=== PATIENT | female | born 1980 | race Caucasian/White ===

== ENCOUNTER → 2019-01-10 10:25 | Outpatient (CLI) | payer OTHER | END | disposition home or self-care (01) | LOC: D.LDO 10:25 | PROVIDERS: ATTEND Obstetrics & Gynecology | DX: O24.419 Gestational diabetes mellitus in pregnancy, unspecified control (principal) ==

== ENCOUNTER → 2019-01-14 17:03 | Outpatient (CLI) | payer OTHER | END | disposition home or self-care (01) | LOC: D.LDO 17:03 | PROVIDERS: ATTEND Obstetrics & Gynecology | DX: O24.913 Unspecified diabetes mellitus in pregnancy, third trimester (principal); Z3A.31 31 weeks gestation of pregnancy ==

== ENCOUNTER → 2019-01-17 12:37 | Outpatient (CLI) | payer OTHER ==
[~2019-01-17 12:37] MED LIST: GLYBURIDE5 M1 PO; HYDROCODON-ACE1 EA10 PO; IBUPROFEN600 MG PO; PRENAVITE1 TAB PO
== END | disposition home or self-care (01) ==
LOC: D.LDO 12:37
DX: O24.419 Gestational diabetes mellitus in pregnancy, unspecified control (principal)

== ENCOUNTER → 2019-01-20 11:55 | Outpatient (CLI) | payer OTHER | END | disposition home or self-care (01) | LOC: D.LDO 11:55 | PROVIDERS: ATTEND Obstetrics & Gynecology | DX: O24.913 Unspecified diabetes mellitus in pregnancy, third trimester (principal); Z3A.32 32 weeks gestation of pregnancy ==

== ENCOUNTER → 2019-01-23 10:59 | Outpatient (CLI) | payer OTHER | END | disposition home or self-care (01) | LOC: D.LDO 10:59 | PROVIDERS: ATTEND Obstetrics & Gynecology | DX: O24.419 Gestational diabetes mellitus in pregnancy, unspecified control (principal); Z3A.33 33 weeks gestation of pregnancy ==

== ENCOUNTER → 2019-01-27 17:05 | Outpatient (CLI) | payer OTHER | END | disposition home or self-care (01) | LOC: D.LDO 17:05 | PROVIDERS: ATTEND Obstetrics & Gynecology | DX: O24.419 Gestational diabetes mellitus in pregnancy, unspecified control (principal); Z3A.33 33 weeks gestation of pregnancy ==

== ENCOUNTER → 2019-01-30 12:47 | Outpatient (CLI) | payer OTHER ==
[2019-01-30 14:53] LABS: APPEARANCE HAZY (CLEAR); BILIRUBIN NEGATIVE (NEGATIVE); COLOR DK YELLOW (YELLOW); GLUCOSE NEGATIVE (NEGATIVE); KETONE NEGATIVE (NEGATIVE); NITRITE NEGATIVE (NEGATIVE); PROTEIN 2+ mg/dL (NEGATIVE); SPECIFIC GRAVITY 1.015 (1.005-1.020)
[2019-01-30 14:54] LABS: BACTERIA FEW /hpf (NONE SEEN); EPITHELIAL CELLS 0-5 /hpf (0-5); MUCUS <1+ /lpf (NONE SEEN); RED CELLS - URINE OCC /hpf (0-5); WHITE CELLS - URINE 0-5 /hpf (0-5)
== END | disposition home or self-care (01) ==
LOC: D.LDO 12:47
PROVIDERS: ATTEND Obstetrics & Gynecology
DX: O24.419 Gestational diabetes mellitus in pregnancy, unspecified control (principal); Z3A.34 34 weeks gestation of pregnancy

== ENCOUNTER → 2019-02-03 17:20 | Outpatient (CLI) | payer OTHER | END | disposition home or self-care (01) | LOC: D.LDO 17:20 | PROVIDERS: ATTEND Neurological Surgery | DX: O24.419 Gestational diabetes mellitus in pregnancy, unspecified control (principal); Z3A.34 34 weeks gestation of pregnancy ==

== ENCOUNTER → 2019-02-06 10:15 | Outpatient (CLI) | payer OTHER ==
--- NOTE | 2019-02-06 11:17 | NUR ---
PT SITTING UP IN BED , DENIES ANY S/S. SIG OTHER AT BEDSIDE. SRUx2, CL IN REACH.
[2019-02-06 11:21] LABS: APPEARANCE TURBID (CLEAR); BILIRUBIN NEGATIVE (NEGATIVE); COLOR YELLOW (YELLOW); GLUCOSE NEGATIVE (NEGATIVE); KETONE NEGATIVE (NEGATIVE); NITRITE NEGATIVE (NEGATIVE); PROTEIN 1+ mg/dL (NEGATIVE); SPECIFIC GRAVITY 1.025 (1.005-1.020); WHITE CELLS - URINE 0-5 /hpf (0-5)
[2019-02-06 11:22] LABS: AMORPHOUS SEDIMENT >1+ /lpf (NONE SEEN); BACTERIA MODERATE /hpf (NONE SEEN); EPITHELIAL CELLS 0-5 /hpf (0-5); MUCUS <1+ /lpf (NONE SEEN)
--- NOTE | 2019-02-06 11:35 | NUR ---
PT UP TO BR TO VOID WITH ASSIST FROM SIG OTHER. PT BACK TO BED. THIS RN TO ROOM FOR PT CHECK AND TO REAPPLY BP CUFF AND PULSE OX. PT DENIES NEEDS. PT SKIN TONE IMPROVING, MORE COLOR TO CHEEKS. SRUx2, CL IN REACH. WILL CONT TO MONITOR.
[2019-02-08 12:48] LABS: PROTEIN - URINE 31.5 mg/dL (0.0-11.9)
== END | disposition home or self-care (01) ==
LOC: D.LDO 10:15
PROVIDERS: ATTEND Obstetrics & Gynecology
DX: O24.419 Gestational diabetes mellitus in pregnancy, unspecified control (principal); Z3A.35 35 weeks gestation of pregnancy

== ENCOUNTER → 2019-02-10 12:00 | Outpatient (CLI) | payer OTHER | END | disposition home or self-care (01) | LOC: D.LDO 12:00 | PROVIDERS: ATTEND Obstetrics & Gynecology | DX: O24.913 Unspecified diabetes mellitus in pregnancy, third trimester (principal); Z3A.35 35 weeks gestation of pregnancy ==

== ENCOUNTER → 2019-02-13 12:01 | Outpatient (CLI) | payer OTHER | END | disposition home or self-care (01) | LOC: D.LDO 12:01 | PROVIDERS: ATTEND Obstetrics & Gynecology | DX: O13.3 Gestational [pregnancy-induced] hypertension without significant proteinuria, third trimester (principal); Z3A.36 36 weeks gestation of pregnancy ==

== ENCOUNTER → 2019-02-17 09:20 | Outpatient (CLI) | payer OTHER ==
[2019-02-17 10:37] LABS: BASOPHILS 0.3 % (0-2); EOSINOPHILS 1.4 % (0-7); HEMATOCRIT 31.4 % (36.0-48.0); HEMOGLOBIN 10.8 g/dL (12-16); IMMATURE GRANULOCYTES 0.8 % (0-5); LYMPHOCYTES 19.6 % (15-50); MCH 33.2 pg (26.0-34.0); MCHC 34.4 g/dL (31.0-37.0); MCV 96.6 fL (80.0-100.0); MEAN PLATELET VOLUME 10.1 fL (7.4-10.4); MONOCYTES 9.8 % (2-11); NEUTROPHILS 68.1 % (40-80); PLATELET COUNT 172 10x3/uL (130-400); RBC 3.25 10x6/uL (4.00-5.40); RDW 13.3 % (11.5-14.5); WBC 7.2 10x3/uL (4.8-10.8)
[2019-02-17 10:39] LABS: APPEARANCE HAZY (CLEAR); BILIRUBIN NEGATIVE (NEGATIVE); COLOR YELLOW (YELLOW); GLUCOSE NEGATIVE (NEGATIVE); KETONE NEGATIVE (NEGATIVE); NITRITE NEGATIVE (NEGATIVE); PROTEIN 1+ mg/dL (NEGATIVE); UROBILINOGEN NORMAL (NORMAL)
[2019-02-17 10:40] LABS: BACTERIA MANY /hpf (NONE SEEN); MUCUS <1+ /lpf (NONE SEEN); RED CELLS - URINE 0-5 /hpf (0-5)
[2019-02-17 10:41] LABS: AMORPHOUS SEDIMENT >1+ /lpf (NONE SEEN)
[2019-02-17 10:48] LABS: ALBUMIN 2.4 g/dL (3.4-5.0); ALKALINE PHOSPHATASE 151 U/L (46-116); ALT (SGPT) 19 U/L (10-68); BILIRUBIN - TOTAL 0.32 mg/dL (0.2-1.3); CALC OSMOLALITY 273 mosm/kg (275-300); CALCIUM 9.1 mg/dL (8.5-10.1); CARBON DIOXIDE 23.6 mmol/L (21.0-32.0); CHLORIDE - SERUM 105 mmol/L (98-107); CREATININE - SERUM 0.6 mg/dL (0.6-1.3); GLUCOSE 101 mg/dL (74-106); POTASSIUM - SERUM 3.4 mmol/L (3.5-5.1); SODIUM 138 mmol/L (136-145); UREA NITROGEN 8 mg/dL (7-18); eGFR NON AFRICAN AMERICAN > 90 mL/min (90-120)
[2019-02-17 10:49] LABS: BILIRUBIN - DIRECT 0.07 mg/dL (0.00-0.30); BILIRUBIN - INDIRECT 0.25 mg/dL (0.00-1.00); URIC ACID 4.1 mg/dL (2.6-7.2)
[2019-02-18 12:20] LABS: PROTEIN - URINE 37.8 mg/dL (0.0-11.9)
== END | disposition home or self-care (01) ==
LOC: D.LDO 09:20
PROVIDERS: ATTEND Obstetrics & Gynecology
DX: O24.419 Gestational diabetes mellitus in pregnancy, unspecified control (principal); Z3A.36 36 weeks gestation of pregnancy

== ENCOUNTER → 2019-02-20 18:07 | Outpatient (CLI) | payer OTHER | END | disposition home or self-care (01) | LOC: D.LDO 18:07 | DX: O26.893 Other specified pregnancy related conditions, third trimester (principal); Z3A.37 37 weeks gestation of pregnancy ==

== ENCOUNTER 2019-02-21 05:11 | Inpatient (IN) | payer OTHER ==
[~2019-02-21] VITALS: Ht 172.7 cm; Wt 98.9 kg
[2019-02-21] MEDS ORDERED: GLYBURIDE5 M1 PO (05:36)
[2019-02-21] MEDS ORDERED: PRENAVITE1 TAB PO (05:36)
[2019-02-21 05:58] VITALS: BP 111/59; Ht 172.7 cm; Wt 98.9 kg
[2019-02-21 06:23] LABS: HEMATOCRIT 31.1 % (36.0-48.0); HEMOGLOBIN 10.6 g/dL (12-16); MCH 32.6 pg (26.0-34.0); MCHC 34.1 g/dL (31.0-37.0); MCV 95.7 fL (80.0-100.0); MEAN PLATELET VOLUME 10.1 fL (7.4-10.4); RBC 3.25 10x6/uL (4.00-5.40); RDW 13.2 % (11.5-14.5); WBC 8.5 10x3/uL (4.8-10.8)
[2019-02-21 07:50] LABS: APPEARANCE CLOUDY (CLEAR); BILIRUBIN NEGATIVE (NEGATIVE); COLOR YELLOW (YELLOW); GLUCOSE NEGATIVE (NEGATIVE); KETONE MODERATE mg/dL (NEGATIVE); NITRITE NEGATIVE (NEGATIVE); PROTEIN TRACE mg/dL (NEGATIVE); SPECIFIC GRAVITY 1.025 (1.005-1.020); UROBILINOGEN NORMAL (NORMAL)
[2019-02-21 07:51] LABS: AMORPHOUS SEDIMENT <1+ /lpf (NONE SEEN); BACTERIA MANY /hpf (NONE SEEN); MUCUS <1+ /lpf (NONE SEEN); RED CELLS - URINE RARE /hpf (0-5); URIC ACID CRYSTALS 0-5 /hpf (NONE SEEN); WHITE CELLS - URINE 0-5 /hpf (0-5)
--- NOTE | 2019-02-21 09:45 | NUR ---
I have reviewed this patient and I concur with the Shift Assessment completed by the Licensed Practical Nurse today this shift.
--- NOTE | 2019-02-21 09:52 | NUR ---
FUNDUS PALPATED. FIRM AND MIDLINE.
[2019-02-21 10:04] VITALS: BP 110/65
--- NOTE | 2019-02-21 10:10 | NUR ---
DILAUDID ENGRAVER SIGNATURE STARTED, RATES PAIN AT 5/10 AT THIS TIME. FUNDUS FIRM AT U/2, MIDLINE AND LIGHT LOCHIA NOTED. SHE IS ABLE TO DEMONSTRATE ENGRAVER SIGNATURE USE. SPOUSE AT BEDSIDE, CALL LIGHT IN REACH.
--- NOTE | 2019-02-21 10:20 | NUR ---
RECEIVED BY BED BACK TO ROOM FROM RECOVERY. PT IS AWAKE AND ALERT, RATES PAIN AT 3/10, FUNDUS FIRM AT U/2, NO CLOTS NOTED WITH MASSAGE, LIGHT LOCHIA. TOWELS AND PADS CHANGE, ICE PACK TO INCISION SITE. MACHADO CATH TO BEDSIDE DRAIN WITH 200ML DARK KOSTAS URINE NOTED TO SARATH MAX, SCD BILAT PER ORDERS AND PUMP IS ON. SALINE LOCK TO RIGHT FOREAM AND IV TO LEFT HAND INFUSING PER ORDERS. BIKINI INCISION HAS LARGE WHITE BANDAGE COVERING, BANDAGE IS CLEAN AND DRY. SIDE RAILS UP X 2 WITH CALL LIGHT IN REACH, FAMILY MEMBERS PERSENT.
--- NOTE | 2019-02-21 10:30 | NUR ---
FUNDUS FIRM A U/1, LIGHT TO MODERATE LOCHIA WITHOUT CLOTS NOTED WITH MASSAGE. RATES PAIN AT 2/10 BUT STATES SHE IS HAVING "WAVES OF NAUESA" TILTED TO RIGHT SIDE WITH COLD WET CLOTH PROVIDED. SMALL CUP OF ICE CHIP PER REQUEST. CALL LIGHT IN REACH.
--- NOTE | 2019-02-21 11:31 | NUR ---
FUNDUS FIRM AT U/1 WITH LIGHT BLEEDING NOTED, PADS CHANGED AND NEW ICE PACK APPLIED TO INCISION. STATES THAT NAUSEA IS MUCH BETTER AND RATES PAIN AT 2/10 AT THIS TIME, SIDE RAILS UP X 2 WITH CALL LIGHT IN REACH.
--- NOTE | 2019-02-21 12:15 | NUR ---
LARGE ICE WATER AND SMALL CUP OF ICE PER REQUEST. FUNDUS FIRM AT U/1 WITH LIGHT BLEEDING, NO CLOTS NOTED WITH MASSAGE. OUTPUT OF 200ML DARK URINE NOTED TO COLLECTION CANISTER. RATES PAIN AT 5/10, VISITING WITH FAMILY AT BEDSIDE.
--- NOTE | 2019-02-21 13:30 | NUR ---
CALLED TO ROOM, PT COMPLAINS OF INCREASE NAUSEA AFTER EACH USE OF DILAUDID STAFF TOXICOLOGIST, ALSO ASKING ABOUT EATING SOLID FOOD. STATES THAT IF SHE DOES NOT USE STAFF TOXICOLOGIST SHE HAS NO NAUSEA. BOWEL SOUNDS ACTIVE X 4. WILL CALL DR GARCIA WITH PT REQUEST.
--- NOTE | 2019-02-21 13:40 | NUR ---
REPORT TO DR GARCIA OF PT COMPLAINTS OF NAUSEA WITH DILAUDID AND WANTING TO EAT. ORDER RECEIVED TO HOLD DILAUDID GIVEN NORCO 10/325MG PO AND CALL MED WITH PAIN REASSESSMENT. REMAIN NPO AT THIS TIME.
--- NOTE | 2019-02-21 14:00 | NUR ---
PT AGREEABLE WITH PLAN OF CARE FOR PAIN TREATMENT. COMPLIANCE DIRECTOR DISCONNECTED AT THIS TIME. NORCO 10/325MG GIVEN WITH LARGE ICE WATER, RATES PAIN AT 5/10. SPOUSE AT BEDSIDE WITH CALL LIGHT IN REACH.
[2019-02-21 15:29] LABS: BASOPHILS 0.2 % (0-2); EOSINOPHILS 0.2 % (0-7); HEMATOCRIT 29.9 % (36.0-48.0); HEMOGLOBIN 9.9 g/dL (12-16); IMMATURE GRANULOCYTES 0.6 % (0-5); LYMPHOCYTES 15.3 % (15-50); MCH 32.2 pg (26.0-34.0); MCHC 33.1 g/dL (31.0-37.0); MCV 97.4 fL (80.0-100.0); NEUTROPHILS 76.7 % (40-80); PLATELET COUNT 160 10x3/uL (130-400); RBC 3.07 10x6/uL (4.00-5.40); RDW 13.1 % (11.5-14.5)
[2019-02-21 15:55] LABS: WBC 10.7 10x3/uL (4.8-10.8)
--- NOTE | 2019-02-21 17:00 | NUR ---
PT RATES PAIN AT 3/10, DENIES NAUSEA. SHE IS CURRENTLY SITTING UP IN BED WHILE VISIITING WITH FAMILY/FRIENDS. ELIZA PADS CHANGED AND PT ABLE TO MOVE SELF UP IN BED WITH LITTLE ASSISTANCE. SHE STATES "I DO NOT WANT ANY MORE DILAUDID" REPORT CALLED TO DR GARCIA ORDERS RECIEVED TO D/C DIRECTOR BUSINESS, MAY SALINE LOCK IV. NORCO 10/325MG AND MOTRIN 600MG PER STANDING ORDER SET, MAY HAVE REGULAR DIET TOLERATED.
--- NOTE | 2019-02-21 17:30 | NUR ---
ELIZA/MACHADO CARE PER THIS RN. PINK AND BLUE UNDERPADS CHANGED, FUNDUS FIRM AT U/1 WITH LIGHT BLEEDING AND NO CLOTS WITH MASSAGE. 100ML DARK CLEAR URINE NOTED TO COLLECTION CANISTER. RATES PAIN AT 3/10 AT THIS TIME. SIDE RAILS UP X 2 WITH CALL LIGHT IN REACH. SPOUSE AT BEDSIDE.
--- NOTE | 2019-02-21 19:36 | NUR ---
SHIFT ASSESSMENT COMPLETED PER FLOWSHEET. VSS. FUNDUS FIRM, MIDLINE AND U2 WITH SMALL RUBRA LOCHIA. PAIN 5/10, ABD CRAMPING, NORCO GIVEN. C/O NAUSEA, DISCUSSED ORDERED MEDICATIONS. REQUESTS ZOFRAN, WILL PROVIDED PER PT REQUEST, STATES THAT PHENERGAN WITH JUST MAKE HER DROWSY. BOWEL SOUNDS PRESENT AND ACTIVE X4. STATES THAT SHE IS PASSING "A LITTLE" FLATUS. REQUESTS MACHADO D/C AND STATES THAT SHE WANTS TO GET OOB IN THE "NEXT FEW HOURS." DRSG NOTED TO LOWER TRANSVERSE ABD INCISION, CLEAN, DRY AND INTACT. MACHADO D/C'D WITH 125 MLS TEA COLORED URINE EMPTIED. CHUX CHANGED AND PERICARE DONE. 1+ EDEMA NOTED TO BLE AND BUE. REFUSES SCD'S, EDUCATED ON PURPOSE AND IMPORTANCE OF SCD'S, VERBALIZES UNDERSTANDING, STATES "I JUST CAN'T MOVE MY LEGS WELL WITH THEM ON AND I GET HOT." INCENTIVE SPIROMETER USED WITH GOOD EFFORT. COUGHING AND DEEP BREATHING DONE WITH GOOD EFFORT. BED IN LOW POSITION WITH UPPER SIDE RAILS RAISED X2. CALL LIGHT AND PHONE WITHIN REACH. WILL CONTINUE TO MONITOR AND ASSIST PRN.
[2019-02-21 19:58] VITALS: BP 131/60
--- NOTE | 2019-02-21 19:58 | NUR ---
REQUESTS ZOFRAN FOR CONTINUED NAUSEA. L HAND PIV FLUSHES WELL WITH NO S/S OF INFILTRATION NOTED. ZOFRAN GIVEN IN L HAND PIV SIVP. RT FA PIV REMOVED PER PT REQUEST, STATES THAT IT IS SORE, REDNESS NOTED. WARM WASH CLOTH APPLIED. REINFORCED TEACHING ON CALLING FOR ASSISTANCE OOB, VERBALIZES UNDERSTANDING.
--- NOTE | 2019-02-21 20:53 | NUR ---
UP TO VOID. DENIES DIZZINESS AND LIGHTHEADEDNESS. STAND BY ASSIST TO BATHROOM, STEADY GAIT NOTED. VOIDED 350 MLS IN HAT. PERICARE DONE PER PT. PERIPADS AND PANTIES APPLIED. LINENS CHANGED. REQUESTS TO PUT ON OWN CLOTHS, PT CHANGED INTO HER PERSONAL CLOTHES. SITTING UP ON COUCH AT THIS TIME. ICE PACK PROVIDED, DENIES ADDITIONAL NEEDS. SPOUSE REMAINS AT BEDSIDE, SUPPORTIVE AND ATTENTIVE TO PT AND HER NEEDS. WILL CONTINUE TO MONITOR.
--- NOTE | 2019-02-21 21:36 | NUR ---
BACK TO BED WITH STAND BY ASSIST, STEADY GAIT NOTED. DENIES NEEDS.
--- NOTE | 2019-02-21 22:20 | NUR ---
REFUSES NICOTINE PATCH, STATES THAT SHE WAS A FORMER SMOKER BUT HASN'T SMOKED IN 4-5 YEARS. DENIES NEEDS AT THIS TIME. BED IN LOW POSITION WITH UPPER SIDE RAILS RAISED X2. CALL LIGHT AND PHONE WITHIN REACH. SPOUSE AT BEDSIDE, SUPPORTIVE AND ATTENTIVE TO PT AND HER NEEDS.
--- NOTE | 2019-02-21 22:32 | NUR ---
UP TO VOID WITH ASSIST OF SPOUSE. 300 MLS NOTED IN HAT WITH HALF DOLLAR SIZED CLOT. PT CONCERNED REGARDING AMT OF BLOOD IN HAT, SCANT RUBRA LOCHIA TO PERIPAD. VSS. FUNDUS FIRM, MIDLINE AND U2, SCANT RUBRA LOCHIA ON PERIPAD. DENIES DIZZINESS AND LIGHTHEADEDNESS. REQUEST SIMETHICONE, GIVEN PER REQUEST. ENCOURAGED TO AMBULATE IN [place], STATES THAT SHE WILL TRY WHEN SHE GETS UP THE NEXT TIME. ICE WATER PROVIDED. BED IN LOW POSITION WITH UPPER SIDE RAILS RAISED X2. CALL LIGHT AND PHONE WITHIN REACH. WILL CONT TO MONITOR. REFUSES SCD'S.
--- NOTE | 2019-02-21 23:44 | NUR ---
PAIN 3/10, ABD CRAMPING NORCO GIVEN. VOIDED 300 MLS IN HAT. REQUESTS TO AMBULATE TO [facility] PARENTS ROOM WITH SPOUSE STEADY GAIT NOTED, INSTRUCTED TO NOTIFY STAFF IF DIZZY OR FEELING FAINT, VERBALIZES UNDERSTANDING. WILL CHECK V/S WHEN SHE RETURNS TO ROOM.
[2019-02-22 00:24] VITALS: BP 120/59
--- NOTE | 2019-02-22 00:24 | NUR ---
BACK TO ROOM FROM AMBULATING. VSS. FUNDUS REMAINS FIRM MIDLINE AND U2 WITH SMALL AMT RUBRA LOCHIA, NO CLOTS NOTED. DENIES PAIN, STATES THAT SHE FEELS BETTER JUST BEING UP AMBULATING. ICE WATER, PEANUT BUTTER, AND MICHAEL CRACKERS PROVIDED. DENIES ADDITIONAL NEEDS. BED IN LOW POSITION WITH UPPER SIDE RAILS RAISED X2. CALL LIGHT AND PHONE WITHIN REACH. WILL CONTINUE TO MONITOR AND ASSIST PRN.
[2019-02-22 00:25] VITALS: BP 120/59
--- NOTE | 2019-02-22 01:52 | NUR ---
C/O PAIN 2/10 ABD SORENESS AND "FEELING GASSY." REQUESTS MOTRIN AND SIMETHICONE, GIVEN PER REQUEST. DENIES ADDITIONAL NEEDS, BED IN LOW POSITION WITH UPPER SIDE RAILS RAISED X2. CALL LIGHT AND PHONE WITHIN REACH. WILL CONTINUE TO MONITOR AND ASSIST PRN.
--- NOTE | 2019-02-22 02:40 | NUR ---
PAIN REASSESSMENT COMPLETED. RESTING QUIETLY IN SEMI FOWLERS POSITION WITH EYES CLOSED, RESPIRATIONS REGULAR AND UNLABORED, NO S/S OF DISTRESS NOTED. SPOUSE RESTING QUIETLY AT BEDSIDE. BED IN LOW POSITION WITH UPPER SIDE RAILS RAISED X2. CALL LIGHT AND PHONE WITHIN REACH.
[2019-02-22 04:02] VITALS: BP 131/56
--- NOTE | 2019-02-22 04:02 | NUR ---
VSS. PAIN 2-3/10 ABD CRAMPING. NORCO GIVEN PER PT REQUEST AND ORDER. ICE PACK AND ICE WATER PROVIDED. INCENTIVE SPIROMETER USED, GOOD EFFORT. UP TO VOID, QUARTER SIZED CLOT NOTED FOLLOWING VOID. FUNDUS REMAINS FIRM, MIDLINE AND U2 WITH SCANT RUBRA LOCHIA NOTED TO PERIPAD. DENIES ADDITIONAL NEEDS. BED IN LOW POSITION WITH UPPER SIDE RAILS RAISED X2. CALL LIGHT AND PHONE WITHIN REACH. WILL CONTINUE TO MONITOR AND ASSIST PRN.
--- NOTE | 2019-02-22 04:48 | NUR ---
RESTING QUIETLY WITH EYES CLOSED IN SEMI FOWLERS POSITION. RESPIRATIONS REGULAR AND UNLABORED, NO S/S OF DISTRESS NOTED. BED IN LOW POSITION WITH UPPER SIDE RAILS RAISED X2. CALL LIGHT AND PHONE WITHIN REACH. WILL CONTINUE TO MONITOR AND ASSIST PRN.
[2019-02-22 06:25] LABS: BASOPHILS 0.2 % (0-2); EOSINOPHILS 1.3 % (0-7); HEMATOCRIT 28.6 % (36.0-48.0); HEMOGLOBIN 9.5 g/dL (12-16); IMMATURE GRANULOCYTES 0.4 % (0-5); MCH 32.3 pg (26.0-34.0); MCHC 33.2 g/dL (31.0-37.0); MCV 97.3 fL (80.0-100.0); MEAN PLATELET VOLUME 10.1 fL (7.4-10.4); MONOCYTES 10.5 % (2-11); NEUTROPHILS 66.6 % (40-80); PLATELET COUNT 169 10x3/uL (130-400); RBC 2.94 10x6/uL (4.00-5.40); RDW 13.3 % (11.5-14.5); WBC 11.2 10x3/uL (4.8-10.8)
--- NOTE | 2019-02-22 07:08 | NUR ---
FASTING FSBS 92. SITTING ON EDGE OF BED CONVERSING WITH SPOUSE. REPORTS THAT SHE JUST VOIDED, DENIES NEEDS AT THIS TIME. BED IN LOW POSITION, CALL LIGHT PLACED WITHIN PT REACH. DENIES NEEDS.
[2019-02-22 07:18] LABS: RAPID PLASMA REAGIN Non Reactive (Non Reactive)
[2019-02-22 07:34] VITALS: BP 114/62
--- NOTE | 2019-02-22 07:35 | NUR ---
THIS RN TO ROOM FOR SHIFT ASSESSMENT. SHIFT ASSESSMENT COMPLETED, VSS, SEE FLOWSHEET FOR DOC. PT AAOx3, C/O PAIN AT INCISION AND CRAMPING, RATED 3/10 AT REST. FF, ML, U/U. SMALL RUBRA LOCHIA WITHOUT CLOTS. PT STATES SHE NEEDS TO GET UP AND VOID SOON. PT INSTRUCTED ON EMPTYING BLADDER FREQUENTLY AND S/S TO REPORT REGARDING LOCHIA AND CLOTS. UNDERSTANDING VERBALIZE. ABD DRESSING OVER LT C/S INCISION SHOWS SMALL AMOUNT SEROSANGINOUS DRAINAGE TO RIGHT/MIDLINE OF DRESSING. WILL CONT TO MONITOR DRAINAGE. PT REQUESTS IV OUT. AM LABS REVIEWED AND NOTED TO BE STABLE. LEFT HAND PIV REMOVED NO LONGER INDICATED. PRESSURE HELD AND BANDAID APPLIED. PT UP TO BR TO VOID. PT AMBULATES TO BR WITHOUT ASSIST AND VOIDS MODERATE AMOUNT CLEAR YELLOW URINE. SMALL LOCHIA NOTED, NO CLOTS. PERICARE PER PT. PT AMBULATES BACK TO BED, STATES PAIN IS NOW 5/10 WITH MOVEMENT AND REQUESTS PAIN MEDICATIONS, STATES SHE WANTS TO TAKE BOTH NORCO AND MOTRIN. PT ALSO STATES SHE NEEDS GAS-X AGAIN FOR GAS PAINS. PT DENIES PASSING GAS SINCE SURGERY. PT INSTRUCTED TO AMBULATE WHEN PAIN IS UNDER CONTROL, UNDERSTANDING VERBALIZED. PT SITTING UP IN BED EATING BREAKFAST AT THIS TIME. WILL ADMIN PAIN MEDS ORDERED.
--- NOTE | 2019-02-22 07:49 | NUR ---
PT ADMIN PRN PAIN MEDS AND SIMETHICONE ORDERED, SEE EMAR FOR DOC. PT PROVIDED WITH FRESH ICE WATER. PT STATES SHE WANTS TO SHOWER LATER. PT INSTRUCTED TO CALL THIS RN TO ASSIST WITH ABD DRESSING REMOVAL AND FOR BED LINEN CHANGE. UNDERSTANDING VERBALIZED. SPOUSE AT BEDSIDE. SRUx2, CL IN REACH. WILL CONT TO MONITOR.
--- NOTE | 2019-02-22 09:22 | NUR ---
PT CALLS OUT WELLNESS COACH LIGHT ASKING IF WE NEED TO CHECK POSTPRANDIAL BLOOD SUGAR. THIS RN TO ROOM. PT INFORMED THAT THERE IS NO ORDER TO CHECK POSTPRANDIAL BLOOD SUGAR, PT QUESTIONED TO IF SHE FEELS LIKE HER BLOOD SUGAR IS LOW. PT STATES "NO, I FEEL FINE I JUST THOUGHT IT WAS SUPPOSED TO BE CHECKED AFTER I ATE. I ALREADY TOOK IT MYSELF ANYWAY AND IT WAS 93." PT REASSURED. PT DENIES NEEDS AT THIS TIME, VISITING WITH VISITORS. WILL CONT TO MONITOR.
--- NOTE | 2019-02-22 10:30 | NUR ---
PT SPOUSE TO DESK STATING THAT PT IS READY TO SHOWER. THIS RN TO ROOM. PT IN BATHROOM VOIDING. PT UP TO SHOWER. PT PROVIDED WITH TOWELS AND CLOTHS, STATES SHE WILL USE FOAM SOAP PREVIOUSLY PROVIDED. PT DENIES NEED FOR ASSIST SHOWERING. BED TO SHOWER, INSTRUCTED TO CALL OUT TO THIS RN WHEN READY FOR ABD DRESSING REMOVED. THIS RN REMAINS IN ROOM CHANGING BED LINENS. LINEN CHANGE COMPLETED. PT CALLS OUT FROM SHOWER SHE IS READY. THIS RN TO ASSIST IN REMOVAL OF ABD DRESSING. PT OUT OF SHOWER. THIS RN REMOVES ABD DRESSING. INCISION IS CLEAN WITH NO DRAINAGE NOTED, GLEN INTACT. PT ASSISTED WITH DRYING WITH TOWEL AND PLACING IN CLEAN PANTIES AND PERIPADS. PERIPAD PLACED OVER INCISION WITH PT INSTRUCTION TO KEEP INCISION CLEAN AND DRY. UNDERSTANDING VERBALIZED. PT TO BED WITHOUT ASSIST. STATES SHE IS GOING TO PUT MAKEUP ON. VISITORS TO ROOM AT THIS TIME. SRUx2, CL IN REACH. WILL CONT TO MONITOR.
--- NOTE | 2019-02-22 11:55 | NUR ---
DR GARCIA TO PT ROOM FOR ROUNDING. POC DISCUSSED, POSSIBLE D/C TO HOME DISCUSSED. ORDER RECIEVED FOR REGLAN 10MG PO x1 NOW.
--- NOTE | 2019-02-22 12:09 | NUR ---
PT ADMIN REGLAN ORDERED, WELL PAIN MEDICATION PER PT REQUEST FOR PAIN WORSENING WITH MOVEMENT RATED 4/10. PT ALSO ADMIN PRN GAS-X PER REQUEST. PT SITTING UP IN BED EATING LUNCH. FRESH ICE WATER GIVEN. PT DENIES FURTHER NEEDS AT THIS TIME. PT INSTRUCTED ON SIDE LYING POSITION ON LEFT SIDE AND AMBULATING TO HELP GAS PASS. PT STATES SHE WILL TRY THAT. SRUx2, CL IN REACH. SPOUSE AT BEDSIDE.
--- NOTE | 2019-02-22 12:20 | NUR ---
PT UP AMBULATING IN HALLS WITH SPOUSE, DENIES NEEDS.
[2019-02-22] MEDS ORDERED: HYDROCODON-ACE1 EA10 PO (13:47)
[2019-02-22] MEDS ORDERED: IBUPROFEN600 MG PO (13:47)
--- NOTE | 2019-02-22 13:50 | NUR ---
PT AMBULATING IN HALLS, STATES SHE HAS BEEN "PASSING LOTS OF GAS." PT STATES SHE SAT ON TOILET AND ELEVATED KNEES TO FACILITATE PASSING OF GAS. PT STATES "I ALREADY FEEL LIKE MY BELLY HAS GONE DOWN SOME" REFERRING TO MILD ABD DISTENTION NOTED BY DR GARCIA IN ROUNDS. PT C/O HEARTBURN AFTER EATING LUNCH AND REQUESTING TUMS. PT ALSO REQUESTS MOTRIN FOR PAIN. WILL NOTIFY MD AND ADMIN ORDERED MEDS.
--- NOTE | 2019-02-22 13:53 | NUR ---
DR GARCIA PHONED AND GIVEN UPDATE ON PT REPORTS. ORDER RECEIVED TO PROCEED WITH D/C TO HOME DISCUSSED THIS AM.
--- NOTE | 2019-02-22 14:13 | NUR ---
PT ADMIN PRN MEDS ORDERED, SEE EMAR FOR DOC.
--- NOTE | 2019-02-22 14:20 | NUR ---
PT GIVEN DISCHARGE INSTRUCTIONS WELL WRITTEN PRESCRIPTIONS PROVIDED BY DR GARCIA FOR PAIN CONTROL POST D/C TO HOME. PT VERBALIZES UNDERSTANDING AND DENIES QUESTIONS. PT SIGNS CHART COPIES.
--- NOTE | 2019-02-22 14:25 | NUR ---
PT TAKEN OFF UNIT VIA W/C TO PRIVATE VEHICLE FOR D/C TO HOME, SPOUSE TO DRIVE PT.
--- NOTE | 2019-02-22 15:18 | NUR ---
PT MINE TECHNICIAN VIAL OF DILAUDID NOTED TO BE LOCKED IN MINE TECHNICIAN PUMP IN ROOM UPON STRIPPING BED LINENS AFTER PT DISCHARGE. MEDICATION VIAL REMOVED AND 17ML WASTED WITH KARAN JONES.
== END 2019-02-22 14:25 | disposition home or self-care (01) | DRG 785 ==
LOC: D.LD 05:11 → D.WS 07:30 → D.LD 02-22 14:25
PROVIDERS: ADMIT Obstetrics & Gynecology; ATTEND Obstetrics & Gynecology
PROC: 10D00Z1 Extraction of Products of Conception, Low, Open Approach (ICD-10-PCS; principal; 2019-02-21 07:30)
PROC: 0UB70ZZ Excision of Bilateral Fallopian Tubes, Open Approach (ICD-10-PCS; 2019-02-21 07:30)
DX: O24.429 Gestational diabetes mellitus in childbirth, unspecified control (principal); Z3A.37 37 weeks gestation of pregnancy; Z37.0 Single live birth; Z30.2 Encounter for sterilization; Z30.09 Encounter for other general counseling and advice on contraception; O14.94 Unspecified pre-eclampsia, complicating childbirth; Z33.3 Pregnant state, gestational carrier